=== PATIENT | female | born 1970 | race Caucasian/White ===

== ENCOUNTER 2020-09-02 18:42 | Emergency (ER) | payer OTHER ==
[~2020-09-02] VITALS: Ht 165.1 cm; Wt 70.3 kg
[2020-09-02] MEDS ORDERED: TAMO10TA6 PO (19:30)
--- NOTE | 2020-09-02 19:51 | NUR ---
DR. FULLER AT BEDSIDE FOR MSE.
--- NOTE | 2020-09-02 21:11 | NUR ---
US TECH ESPERANZA AT BEDSIDE.
--- NOTE | 2020-09-02 21:24 | NUR ---
Patient discharged to home in stable condition. Written and verbal after care instructions given. Patient verbalizes understanding of instructions. Stressed follow up or return to ER for worsening s/s.
[2020-09-02 21:25] VITALS: BP 157/90
== END 2020-09-02 21:26 | disposition home or self-care (01) ==
LOC: ER 18:44
DX: S50.12XA Contusion of left forearm, initial encounter (principal); X58.XXXA Exposure to other specified factors, initial encounter; Y92.89 Other specified places as the place of occurrence of the external cause; Z79.810 Long term (current) use of selective estrogen receptor modulators (SERMs)
CPT/HCPCS: A4663